=== PATIENT | female | born 1950 | race Caucasian/White ===

== ENCOUNTER 2024-04-29 17:20 | Emergency (ER) | payer OTHER ==
[~2024-04-29] VITALS: Ht 177.8 cm; Wt 108.9 kg
[2024-04-29 17:20] VITALS: BP_SYST 148; PULSE 83; RESP 19; TEMP 97.1; O2SAT 97
[2024-04-29 19:25] LABS: BASOPHILS % (AUTO) 0.4 % (0.0-2.0); EOSINOPHILS # (AUTO) 0.3 K/uL (0.0-0.4); EOSINOPHILS % (AUTO) 2.5 % (0.0-4.0); HEMATOCRIT 39.7 % (36-48); LYMPHOCYTES # (AUTO) 2.2 K/uL (1.0-5.5); LYMPHOCYTES % (AUTO) 18.1 % (20.5-51.5); MEAN CORPUSCULAR HEMOGLOBIN 30 pg (27-31); MEAN CORPUSCULAR HGB CONC 35 % (32-36); MEAN CORPUSCULAR VOLUME 84 fL (79.0-98.0); MONOCYTES # (AUTO) 0.7 K/uL (0.0-1.0); MONOCYTES % (AUTO) 5.9 % (1.7-9.3); NEUTROPHILS # (AUTO) 8.7 K/uL (1.8-7.7); NEUTROPHILS % (AUTO) 73.1 % (40.0-70.0); PLATELET COUNT (AUTO) 191 K/uL (130-430); RED BLOOD CELL COUNT(AUTO) 4.71 MIL/uL (4.2-6.2); RED CELL DISTRIBUTION WIDTH 13.2 % (9.0-15.0); WHITE BLOOD COUNT (AUTO) 11.9 K/uL (4.8-10.8)
[2024-04-29 19:41] LABS: ALANINE AMINOTRANSFERASE 26 U/L (12-78); ALBUMIN 3.4 g/dL (3.4-4.8); ANION GAP 11 (5-15); ASPARTATE AMINOTRANSFERASE 21 U/L (10-37); BILIRUBIN,DIRECT 0.1 mg/dL (0.0-0.3); CALCIUM 9.4 mg/dL (8.4-11.0); CARBON DIOXIDE 26 mmol/L (23-29); CHLORIDE 104 mmol/L (98-107); GLUCOSE 182 mg/dL (74-106); LIPASE 177 U/L (16-77); SODIUM SERUM 141 mmol/L (136-145); TOTAL BILIRUBIN 0.5 mg/dL (0.0-1.0); TOTAL PROTEIN, SERUM 7.5 g/dL (6.4-8.3); UREA NITROGEN, BLOOD 24 mg/dL (8-21)
[2024-04-29] MEDS: KETOROLAC TROMETHAMINE 30 MG VIAL IM ONE (20:10)
[2024-04-29 21:57] VITALS: BP_SYST 123; PULSE 72; RESP 18; TEMP 97.5; O2SAT 96
== END 2024-04-29 21:57 | disposition home or self-care (01) ==
LOC: SED 17:20
DX: K80.50 Calculus of bile duct without cholangitis or cholecystitis without obstruction (principal); R10.13 Epigastric pain; R11.10 Vomiting, unspecified; G89.29 Other chronic pain; Z88.5 Allergy status to narcotic agent; Z88.6 Allergy status to analgesic agent
CPT/HCPCS: 99285; 76705; 80076; 80048; 83690; 85025; 36415; 96372; J1885